=== PATIENT | female | born 1990 | race American Indian/Alaskan Native ===

== ENCOUNTER 2017-02-24 14:50 | Emergency (ER) | payer SELFPAY ==
[2017-02-24 15:33] LABS: Basophils % (Auto) 0.5 % (0.0-1.8); Hematocrit 39.1 % (30.3-42.9); Hemoglobin 12.2 gm/dl (10.1-14.3); Mean Corpuscular HGB Conc 31 % (30-34); Platelet Count 419 K/mm3 (140-440); Red Blood Count 5.77 M/mm3 (3.65-5.03); Red Cell Distribution Width 19.1 % (13.2-15.2); White Blood Count 11.9 K/mm3 (4.5-11.0)
[2017-02-24 15:35] LABS: Mean Corpuscular Hemoglobin 21 pg (28-32); Mean Corpuscular Volume 68 fl (79-97)
[2017-02-24 16:10] LABS: Anion Gap 18 mmol/L; BUN/Creatinine Ratio 16; Blood Urea Nitrogen 11 mg/dL (7-17); Calcium 8.6 mg/dL (8.4-10.2); Carbon Dioxide 26 mmol/L (22-30); Chloride 98.7 mmol/L (98-107); Glucose 100 mg/dL (65-100); Potassium 4.4 mmol/L (3.6-5.0); Sodium 138 mmol/L (137-145)
--- NOTE | 2017-02-25 00:57 | Emergency Department Report ---
ED Chest Pain HPI - General Chief Complaint: Dizziness Stated Complaint: SYNCOPE Time Seen by Provider: 02/25/17 00:29 Source: patient Mode of arrival: Wheelchair Limitations: No Limitations - History of Present Illness Initial Comments: Patient is 26 years old female morbidly obese, she presented today for evaluation of chest pain, syncope and shortness of breath. Patient stated that her symptoms started after she gave plasma today. She denied any fever or cough. Patient also stated that she had one syncopal episode here in the ER. she also mentioned that when she was going to [facility] she starts having shortness of breath too. MD Complaint: chest pain -: Sudden Onset: during rest Severity scale (0 -10): 7 Quality: sharp - Related Data Home Medications Medication Instructions Recorded Confirmed Last Taken No Known Home Medications [No 07/02/15 07/02/15 Unknown Reported Home Medications] Allergies Allergy/AdvReac Type Severity Reaction Status Date / Time No Known Allergies Allergy Unverified 07/02/15 11:44 Heart Score - HEART Score History: Moderately suspicious EKG: Normal Age: < 45 Risk factors: 1-2 risk factors Troponin: < normal limit HEART Score: 2 - Critical Actions Critical Actions: 0-3 pts:0.9-1.7%risk of adverse cardiac event.Candidate for discharge ED Review of Systems ROS: Stated complaint: SYNCOPE Other details as noted in HPI Comment: All other systems reviewed and negative Constitutional: denies: chills, fever Respiratory: shortness of breath, SOB with exertion. denies: cough Cardiovascular: chest pain. denies: palpitations Gastrointestinal: denies: abdominal pain, nausea, vomiting, diarrhea, constipation, hematemesis, melena, hematochezia Neurological: denies: headache, weakness, numbness, paresthesias ED Past Medical Hx - Past Medical History Previous Medical History?: Yes Hx Hypertension: No Additional medical history: Ovarian CNC - Surgical History Past Surgical History?: Yes Additional Surgical History: rt ovary removed secondary to cnc-2011 - Social History Smoking Status: Current Every Day Smoker Substance Use Type: None - Medications Home Medications: Home Medications Medication Instructions Recorded Confirmed Last Taken Type No Known Home Medications [No 07/02/15 07/02/15 Unknown History Reported Home Medications] ED Physical Exam - General Limitations: No Limitations General appearance: alert, in no apparent distress - Head Head exam: Present: atraumatic, normocephalic - Eye Eye exam: Present: normal appearance - ENT ENT exam: Present: normal exam, normal orophraynx, mucous membranes moist - Neck Neck exam: Present: normal inspection, full ROM. Absent: tenderness, meningismus, lymphadenopathy, thyromegaly - Respiratory Respiratory exam: Present: normal lung sounds bilaterally. Absent: respiratory distress, wheezes, rales, rhonchi, stridor, chest wall tenderness, accessory muscle use, decreased breath sounds, prolonged expiratory - Cardiovascular Cardiovascular Exam: Present: regular rate, normal rhythm, normal heart sounds - GI/Abdominal GI/Abdominal exam: Present: soft, normal bowel sounds. Absent: distended, tenderness, guarding, rebound, rigid, organomegaly, mass, bruit, pulsatile mass , hernia - Extremities Exam Extremities exam: Present: normal inspection, full ROM, normal capillary refill. Absent: pedal edema, calf tenderness - Back Exam Back exam: Present: normal inspection, full ROM. Absent: tenderness, CVA tenderness (R), CVA tenderness (L) - Neurological Exam Neurological exam: Present: alert, oriented X3, CN II-XII intact, normal gait - Skin Skin exam: Present: warm, intact, normal color. Absent: cyanosis ED Course Vital Signs 02/24/17 02/24/17 02/24/17 15:12 22:48 22:57 Temperature 98.4 F Pulse Rate 85 102 H Respiratory 16 22 18 Rate Blood Pressure 135/63 119/83 O2 Sat by Pulse 100 98 99 Oximetry 02/24/17 02/24/17 02/24/17 23:00 23:09 23:33 Temperature Pulse Rate 96 H 115 H Respiratory 19 20 Rate Blood Pressure 132/86 132/86 132/86 O2 Sat by Pulse 100 99 98 Oximetry 02/24/17 02/24/17 02/25/17 23:34 23:45 00:00 Temperature Pulse Rate 97 H 96 H Respiratory 14 23 Rate Blood Pressure 132/86 124/73 127/81 O2 Sat by Pulse 100 99 Oximetry 02/25/17 02/25/17 02/25/17 00:15 01:07 01:15 Temperature Pulse Rate 96 H 94 H 97 H Respiratory 18 16 17 Rate Blood Pressure 132/86 132/86 110/69 O2 Sat by Pulse 100 100 Oximetry 02/25/17 02/25/17 02/25/17 01:30 01:45 02:00 Temperature Pulse Rate 116 H 102 H 99 H Respiratory 24 18 17 Rate Blood Pressure 123/66 127/81 119/73 O2 Sat by Pulse 99 100 100 Oximetry 02/25/17 02:30 Temperature Pulse Rate 101 H Respiratory 20 Rate Blood Pressure 132/73 O2 Sat by Pulse 100 Oximetry ED Medical Decision Making - Lab Data Result diagrams: 02/24/17 15:22 02/24/17 15:22 - EKG Data -: EKG Interpreted by Pa EKG shows normal: sinus rhythm Rate: normal - EKG Data Interpretation: no acute changes - Radiology Data Radiology results: report reviewed Chest x-ray showed no acute finding. Critical care attestation.: If time is entered above; I have spent that time in minutes in the direct care of this critically ill patient, excluding procedure time. ED Disposition Clinical Impression: Shortness of breath, Syncope Disposition: DC-01 TO HOME OR SELFCARE Is pt being admited?: No Condition: Stable Instructions: Syncope (ED), Dyspnea (ED) Referrals: PRIMARY CARE, [Primary Care Provider] - 3-5 Days
[2017-02-25 01:32] LABS: Bilirubin,Urine NEG (Negative); Blood,Urine NEG (Negative); Ketones,Urine NEG (Negative); Leukocyte Esterase,Urine NEG (Negative); Mucus,Urine 2+ /HPF; Nitrite,Urine NEG (Negative); Protein,Urine <15 mg/dL mg/dL (Negative); RBC,Urine < 1.0 /HPF (0.0-6.0); Urobilinogen,Urine < 2.0 mg/dL (<2.0)
--- NOTE | 2017-02-25 01:49 | XRay Report ---
FINAL REPORT PROCEDURE: XR CHEST 1V AP TECHNIQUE: A portable AP chest radiograph was obtained at 02/25/2017 06:09 ([facility]) . CPT 95727 HISTORY: Chest pain. Syncopal episode. COMPARISON: No prior studies are available for comparison. FINDINGS: Heart: Normal. Mediastinum/Vessels: Normal. Lungs/Pleural space: Normal. Bony thorax: No acute osseous abnormality. Life support devices: None. IMPRESSION: No radiographic evidence of acute cardiopulmonary disease.
[2017-02-25 02:35] VITALS: BP 132/73
[2017-02-25] MEDS ORDERED: TYLENOL PO ONE (02:35)
== END 2017-02-25 03:10 | disposition home or self-care (01) ==
LOC: ED 14:50
DX: R06.02 Shortness of breath (principal); R55 Syncope and collapse; R07.9 Chest pain, unspecified; E66.01 Morbid (severe) obesity due to excess calories; F17.200 Nicotine dependence, unspecified, uncomplicated
CPT/HCPCS: 36415; 71010; 80048; 81001; 81025; 83880; 84484; 85025; 85379; 93005; 93010; 99283

== ENCOUNTER 2017-11-17 00:42 | Emergency (ER) | payer OTHER, MEDICAID ==
[2017-11-17 03:06] LABS: Basophils # (Auto) 0.1 K/mm3 (0.0-0.1); Basophils % (Auto) 0.9 % (0.0-1.8); Eosinophils # (Auto) 0.3 K/mm3 (0.0-0.4); Eosinophils % (Auto) 2.6 % (0.0-4.3); Hematocrit 29.4 % (30.3-42.9); Hemoglobin 9.1 gm/dl (10.1-14.3); Lymphocytes # (Auto) 3.2 K/mm3 (1.2-5.4); Lymphocytes % (Auto) 26.8 % (13.4-35.0); Mean Corpuscular HGB Conc 31 % (30-34); Monocytes # (Auto) 0.8 K/mm3 (0.0-0.8); Monocytes % (Auto) 6.9 % (0.0-7.3); Platelet Count 454 K/mm3 (140-440); Red Blood Count 4.43 M/mm3 (3.65-5.03)
[2017-11-17 03:17] LABS: BUN/Creatinine Ratio 14; Blood Urea Nitrogen 7 mg/dL (7-17); Calcium 8.7 mg/dL (8.4-10.2); Hemolysis Index 0
[2017-11-17 03:22] LABS: Mean Corpuscular Hemoglobin 20 pg (28-32); Mean Corpuscular Volume 66 fl (79-97); Red Cell Distribution Width 21.2 % (13.2-15.2)
[2017-11-17 03:56] LABS: Bilirubin,Urine NEG (Negative); Blood,Urine NEG (Negative); Color,Urine Yellow (Yellow); Protein,Urine <15 mg/dL mg/dL (Negative); Urobilinogen,Urine < 2.0 mg/dL (<2.0)
--- NOTE | 2017-11-17 04:07 | Ultrasound Report ---
FINAL REPORT EXAM: US OB TRANSVAGINAL HISTORY: vaginal bleeding COMPARISONS: None. FINDINGS: Transvaginal grayscale, color Doppler and M-mode first-trimester ultrasound There is a single living intrauterine with recorded cardiac activity of 177 beats per minute and crown-rump length of approximately 24 millimeters, which corresponds to estimated gestational age of 9 weeks 0 days and delivery date of 06/22/2018. No perigestational hemorrhage. Normal appearing 5 millimeter yolk sac. No free fluid identified within the pelvis. The cervix appears closed and measures around 3 cm in length. A left ovarian functional probable corpus luteal cyst is noted. The left ovary measures 3.3 x 2.4 x 3 cm and is otherwise sonographically unremarkable. The right ovary is not visualized and reportedly removed. IMPRESSION: Single living intrauterine without evident complication. Estimated gestational age is 9 weeks 0 days corresponding to delivery date of 06/22/2018.
--- NOTE | 2017-11-17 04:09 | Ultrasound Report ---
FINAL REPORT EXAM: US OB < = 14 WEEKS FETUS HISTORY: vaginal bleeding COMPARISONS: None. FINDINGS: Transabdominal grayscale, color Doppler and M-mode first-trimester ultrasound There is a single living intrauterine with recorded cardiac activity of 177 beats per minute and crown-rump length of approximately 24 millimeters, which corresponds to estimated gestational age of 9 weeks 0 days and delivery date of 06/22/2018. No perigestational hemorrhage. Normal appearing 5 millimeter yolk sac. No free fluid identified within the pelvis. The cervix appears closed and measures around 3 cm in length. A left ovarian functional probable corpus luteal cyst is noted. The left ovary measures 3.3 x 2.4 x 3 cm and is better seen on transvaginal ultrasound. The right ovary is not visualized and reportedly removed. IMPRESSION: Single living intrauterine without evident complication. Estimated gestational age is 9 weeks 0 days corresponding to delivery date of 06/22/2018.
[2017-11-17 06:45] VITALS: BP 104/68
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
== END 2017-11-17 08:18 | disposition home or self-care (01) ==
LOC: ED 00:42
DX: O20.0 Threatened abortion (principal); Z87.891 Personal history of nicotine dependence; Z3A.08 8 weeks gestation of pregnancy; V49.9XXA Car occupant (driver) (passenger) injured in unspecified traffic accident, initial encounter; W22.12XA Striking against or struck by front passenger side automobile airbag, initial encounter; Y93.89 Activity, other specified; Y92.89 Other specified places as the place of occurrence of the external cause; Y99.8 Other external cause status
CPT/HCPCS: 36415; 36430; 76801; 76817; 80048; 81001; 84702; 85025; 86850; 86870; 86900; 86901; 99284; J2790

== ENCOUNTER 2018-06-01 12:12 | Outpatient (CLI) | payer MEDICAID ==
[2018-06-01] MEDS ORDERED: LACTATED RINGERS 500 ML IV ONE (12:39)
[2018-06-01 13:22] LABS: Bacteria,Urine 1+ /HPF (Negative); Bilirubin,Urine NEG (Negative); Blood,Urine NEG (Negative); Mucus,Urine FEW /HPF; Urobilinogen,Urine < 2.0 mg/dL (<2.0)
[2018-06-01 13:23] LABS: Color,Urine Yellow (Yellow)
[2018-06-01 14:38] LABS: Hematocrit 35.1 % (30.3-42.9); Hemoglobin 11.4 gm/dl (10.1-14.3); Mean Corpuscular HGB Conc 33 % (30-34); Mean Corpuscular Volume 79 fl (79-97); Platelet Count 341 K/mm3 (140-440); Red Blood Count 4.47 M/mm3 (3.65-5.03); Red Cell Distribution Width 17.9 % (13.2-15.2)
[2018-06-01 14:55] LABS: Alanine Aminotransferase 19 units/L (7-56)
[2018-06-01 15:24] VITALS: BP 138/66
[2018-06-01 15:24] LABS: Uric Acid 4.2 mg/dL (3.5-7.6)
== END 2018-06-01 15:44 | disposition home or self-care (01) ==
LOC: TRG 12:12
PROVIDERS: ATTEND Obstetrics & Gynecology
DX: O47.03 False labor before 37 completed weeks of gestation, third trimester (principal); Z3A.36 36 weeks gestation of pregnancy
CPT/HCPCS: 36415; 81001; 82565; 83615; 84450; 84460; 84550; 85027

== ENCOUNTER 2018-06-15 11:52 | Inpatient (IN) | payer MEDICAID ==
[2018-06-15 13:10] LABS: Hemoglobin 11.9 gm/dl (10.1-14.3); Mean Corpuscular HGB Conc 33 % (30-34); Mean Corpuscular Volume 77 fl (79-97); Platelet Count 405 K/mm3 (140-440); Red Blood Count 4.66 M/mm3 (3.65-5.03); Red Cell Distribution Width 17.9 % (13.2-15.2)
[2018-06-15 13:20] LABS: Uric Acid 4.3 mg/dL (3.5-7.6)
[2018-06-15 13:22] LABS: Bilirubin,Urine NEG (Negative); Blood,Urine NEG (Negative); Color,Urine Yellow (Yellow); Mucus,Urine 1+ /HPF
[2018-06-15 13:55] LABS: Alanine Aminotransferase 18 units/L (7-56); Albumin 3.1 g/dL (3.9-5); BUN/Creatinine Ratio 15; Blood Urea Nitrogen 6 mg/dL (7-17); Calcium 8.9 mg/dL (8.4-10.2); Hemolysis Index 5
[2018-06-15] MEDS ORDERED: BRETHINE SUB-Q PRN (16:23)
[2018-06-15] MEDS ORDERED: CERVIDIL VG ONE (16:23)
[2018-06-15] MEDS ORDERED: XYLOCAINE 2% INFILTRATI ONE (16:23)
[2018-06-15] MEDS ORDERED: BRETHINE IVP PRN (16:23)
[2018-06-15] MEDS ORDERED: MINERAL OIL PO PRN (16:23)
[2018-06-15] MEDS ORDERED: PITOCin/NS 30 UNIT/500ML 30 UNITS/500 ML BAG IV SCH (17:00)
[2018-06-15] MEDS ORDERED: PITOCin/NS 20 UNIT/1000ML DRIP 20 UNITS/1,000 ML BAG IV SCH (17:00)
--- NOTE | 2018-06-15 21:18 | History and Physical Report ---
History of Present Illness Date of examination: 06/15/18 Date of admission: 06/15/18 16:28 Chief complaint: Sent from office for elevated BPs History of present illness: Menstrual History Regularity: regular Menses every: monthly days Duration: 5 LMP: 09/18/2017 LMP reliability: definite LMP character: heddler test type: urine test Date: 12/03/2017 BC at conception: none Planned ? 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 Infection History Hx of STD: none Partner hx. of genital herpes: no Rash, Viral, or Febrile illness since last LMP? no Varicella/Chicken Pox Status: Immunized Genetic History Congenital Heart Defect: Mom: no Dad: no Phyllis Disease: Mom: no Dad: no Thalassemia Mom: no Dad: no Neural Tube Defect Mom: no Dad: no Down's Syndrome Mom: no Dad: no Trell-Sachs Mom: no Dad: no Sickle Cell Disease/Trait Mom: no Dad: no Hemophilia Mom: no Dad: no Muscular Dystrophy Mom: no Dad: no Cystic Fibrosis Mom: no Dad: no Deandre Chorea Mom: no Dad: no Mental Retardation Mom: no Dad: no Fragile X Mom: no Dad: no Other Genetic/Chromosomal Disorder Mom: no Dad: no Child w/other defect Mom: no Dad: no Enviromental Exposures Xray Exposure: no Medication, drug, or alcohol use since LMP: no Chemical/Other Exposure: no Exposure to Cat Liter: no Hx of Parvovirus (Fifth Disease): no Active Medications (reviewed today): PROMETHAZINE HCL 25 MG ORAL TABLET (PROMETHAZINE HCL) 1 tab po q6hrs prn STOOL SOFTNER () PNV () DIFLUCAN () Current Allergies (reviewed today): * LATEX (Critical) * SEASONAL (Critical) Past History Past Medical History: other (see HPI) Past Surgical History: other (see HPI) 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 11/17/17 Unknown Rx [Diclegis Dr 10-10 mg Tablet] Vit Calc,Iron,Folic 1 each PO QDAY #30 tablet 11/17/17 Unknown Rx [ Vitamins] Active Meds: Active Medications Ephedrine Sulfate (Ephedrine Sulfate) 10 mg IV Q2M PRN PRN Reason: Hypotension Lactated Ringer's (Lactated Ringers) 1,000 mls @ 125 mls/hr IV DIRECT CIELO Oxytocin/Sodium Chloride (Pitocin/Ns 20 Unit/1000ml Drip) 20 units in 1,000 mls @ 125 mls/hr IV DIRECT CIELO Oxytocin/Sodium Chloride (Pitocin/Ns 30 Unit/500ml) 30 units in 500 mls @ 1 mls/hr IV TITR CIELO; Protocol Mineral Oil (Mineral Oil) 30 ml PO QHS PRN PRN Reason: Constipation Terbutaline Sulfate (Brethine) 0.25 mg SUB-Q ONCE PRN PRN Reason: Hyperstimulation/Hypertonicity Terbutaline Sulfate (Brethine) 0.25 mg IVP ONCE PRN PRN Reason: Hyperstimulation/Hypertonicity Review of Systems All systems: negative (patient reports occasional, not painful contractions. Denies LOF, VB. +FM) - Vital Signs Vital signs: Vital Signs Temp Pulse Resp BP 97.9 F 115 H 18 117/78 06/15/18 12:38 06/15/18 12:38 06/15/18 12:38 06/15/18 12:38 Temp Pulse Resp BP Pulse Ox 97.2 F L 107 H 18 141/71 06/15/18 20:32 06/15/18 20:51 06/15/18 20:32 06/15/18 20:51 - Physical Exam Breasts: Positive: normal Cardiovascular: Regular rate, Normal S1, Normal S2 Lungs: Positive: Clear to auscultation Abdomen: Positive: normal appearance, soft, normal bowel sounds. Negative: distention, tenderness Genitourinary (Female): Positive: normal external genitalia, normal perenium Vulva: both: normal Vagina: Positive: normal moisture. Negative: discharge Cervix: Negative: lesion, discharge Uterus: Positive: other (morbid obesity) Adnexa: both: normal Anus/Rectum: Positive: normal perianal skin, heme negative. Negative: rectal mass, hemorrhoids Extremities: Positive: normal Deep Tendon Reflex Grade: Normal +2 - Obstetrical FHR: auscultation normal, category 1 Uterine Contraction Monitor Mode: External Cervical Dilatation: 0 Cervical Effacement Percentage: 40 station: OOP Uterine Contraction Pattern: Absent Uterine Tone Measurement Phase: Resting (soft resting tone) Results Result Diagrams: 06/15/18 12:50 06/15/18 12:50 Abnormal lab results 06/15/18 06/15/18 06/15/18 Range/Units 12:50 12:50 12:50 MCV 77 L (79-97) fl MCH 26 L (28-32) pg RDW 17.9 H (13.2-15.2) % Sodium 135 L (137-145) mmol/L BUN 6 L (7-17) mg/dL Creatinine 0.4 L 0.4 L (0.7-1.2) mg/dL Lactate Dehydrogenase 206 H (91-180) units/L Albumin 3.1 L (3.9-5) g/dL All other labs normal. Assessment and Plan 27 y.o. IUP at 38w4d sent to [facility] for PIH workup d/t elevated BPs in office. PI labs WNL. Patient continues to have elevated BPs in triage. PIH WNL, patient denies any c/o. Dr. Ovalle notified of assessment and lab results. Will proceed with plan for IOL d/t BPs. Routine IOL with cervidil orders placed. DWP POC. Per Dr. Ovalle, patient may eat dinner. Will continue cervidil til 12 hrs post placement and reassess in AM. Patient agrees to POC. Will continue to monitor. Anticipate .
[2018-06-15] MEDS ORDERED: AMBIEN PO PRN (23:56)
[2018-06-16] MEDS ORDERED: PITOCin/NS 30 UNIT/500ML 30 UNITS/500 ML BAG IV SCH (08:30)
--- NOTE | 2018-06-16 08:45 | Progress Note ---
Assessment and Plan cervidil removed by RN this morning, no change in SVE. Plan for shower and regular breakfast this morning. Plan for pitocin induction today.will reassess PRN. Pt w/o complaints this morning. discussed expectations of serial IOL and plan for today. All questions addressed. reviewed lab work and hx with Dr. Ruff - no dx of pre-e at this time. - Patient Problems (1) Chronic hypertension with exacerbation during in third trimester Current Visit: Yes Status: Acute (2) Rh negative, maternal Current Visit: Yes Status: Acute Qualifiers: Trimester: third trimester Qualified Code(s): O26.893 - Other specified related conditions, third trimester; Z67.91 - Unspecified blood type, Rh negative (3) BMI 60.0-69.9, adult Current Visit: Yes Status: Acute (4) 39 weeks gestation of Current Visit: Yes Status: Acute Subjective - Subjective Date of service: 06/16/18 Principal diagnosis: IUP @ 39+1 weeks, CHTN, BMI 63 Patient reports: no new complaints Objective - Vital Signs Vital Signs: Vital Signs - 12hr 06/15/18 06/15/18 06/15/18 20:51 21:52 22:22 Pulse Rate 107 H 105 H 105 H Blood Pressure 141/71 138/81 142/69 06/15/18 06/15/18 06/16/18 22:51 23:51 00:21 Pulse Rate 107 H 110 H 106 H Blood Pressure 139/78 142/80 158/77 06/16/18 06/16/18 06/16/18 00:52 05:17 07:20 Pulse Rate 102 H 107 H 96 H Blood Pressure 145/71 151/91 118/78 - Exam Breasts: normal Cardiovascular: Regular rate Lungs: Clear to auscultation, Normal air movement Abdomen: Present: normal appearance, soft Vulva: both: normal Uterus: Present: normal FHR: auscultation normal, category 1 Uterine Contraction Monitor Mode: External Uterine Contraction Pattern: Irregular Uterine Tone Measurement Phase: Contraction Uterine Contraction Intensity: Mild Extremities: normal Deep Tendon Reflex Grade: Normal +2 - Labs Labs: Abnormal Labs 06/15/18 06/15/18 06/15/18 12:50 12:50 12:50 MCV 77 L MCH 26 L RDW 17.9 H Sodium 135 L BUN 6 L Creatinine 0.4 L 0.4 L Lactate Dehydrogenase 206 H Albumin 3.1 L Laboratory Results - last 24 hr 06/15/18 06/15/18 06/15/18 12:50 12:50 12:50 WBC 6.8 RBC 4.66 Hgb 11.9 Hct 36.0 MCV 77 L MCH 26 L MCHC 33 RDW 17.9 H Plt Count 405 Sodium 135 L Potassium 3.7 Chloride 100.7 Carbon Dioxide 22 Anion Gap 16 BUN 6 L Creatinine 0.4 L 0.4 L Estimated GFR > 60 > 60 BUN/Creatinine Ratio 15 Glucose 79 Uric Acid 4.3 Calcium 8.9 Total Bilirubin < 0.20 AST 31 32 ALT 18 Alkaline Phosphatase 98 Lactate Dehydrogenase 206 H Total Protein 6.8 Albumin 3.1 L Albumin/Globulin Ratio 0.8 Urine Color Urine Turbidity Urine pH Ur Specific Russell Urine Protein Urine Glucose (UA) Urine Ketones Urine Blood Urine Nitrite Urine Bilirubin Urine Urobilinogen Ur Leukocyte Esterase Urine WBC (Auto) Urine RBC (Auto) U Epithel Cells (Auto) Urine Mucus Blood Type Antibody Screen 06/15/18 06/15/18 13:09 18:17 WBC RBC Hgb Hct MCV MCH MCHC RDW Plt Count Sodium Potassium Chloride Carbon Dioxide Anion Gap BUN Creatinine Estimated GFR BUN/Creatinine Ratio Glucose Uric Acid Calcium Total Bilirubin AST ALT Alkaline Phosphatase Lactate Dehydrogenase Total Protein Albumin Albumin/Globulin Ratio Urine Color Yellow Urine Turbidity Clear Urine pH 6.0 Ur Specific Russell 1.028 Urine Protein 100 mg/dl Urine Glucose (UA) Neg Urine Ketones Neg Urine Blood Neg Urine Nitrite Neg Urine Bilirubin Neg Urine Urobilinogen 2.0 Ur Leukocyte Esterase Tr Urine WBC (Auto) 2.0 Urine RBC (Auto) 1.0 U Epithel Cells (Auto) 2.0 Urine Mucus 1+ Blood Type B NEGATIVE Antibody Screen Negative
[2018-06-16] MEDS: LACTATED RINGERS 1,000 ML IV SCH (09:45)
--- NOTE | 2018-06-16 11:46 | Ultrasound Report ---
ULTRASOUND OB LIMITED History: Presentation Technique: Transabdominal ultrasound with Doppler interrogation. Gestation: Single Position: Cephalic Heart Rate: 143 BPM
--- NOTE | 2018-06-16 13:38 | Event Note ---
Date: 06/16/18 Pt with some bps in sever range yesterday on admission. She appears to have superimposed Pre E on the CHTN. Will con't wit serial IOL and plan to start magnesium when in active labor or if there is return of BP in the severe range ie >160/105.
--- NOTE | 2018-06-16 15:16 | Progress Note ---
Assessment and Plan patient c/o wanting efw removed. She requested "internal monitors." SVE with + change, AROM - clear fluid. ISE and IUPC placed without difficulty - both tracing well. IVF open for bolus, pt desires epidural placement. - Patient Problems (1) Chronic hypertension with exacerbation during in third trimester Current Visit: Yes Status: Acute (2) Rh negative, maternal Current Visit: Yes Status: Acute Qualifiers: Trimester: third trimester Qualified Code(s): O26.893 - Other specified related conditions, third trimester; Z67.91 - Unspecified blood type, Rh negative (3) BMI 60.0-69.9, adult Current Visit: Yes Status: Acute (4) 39 weeks gestation of Current Visit: Yes Status: Acute Subjective - Subjective Date of service: 06/16/18 Principal diagnosis: IUP @ 39+1 weeks, CHTN, BMI 63 Patient reports: contractions Objective - Vital Signs Vital Signs: Vital Signs - 12hr 06/16/18 06/16/18 06/16/18 05:17 07:20 08:12 Temperature 98.6 F Pulse Rate 107 H 96 H Blood Pressure 151/91 118/78 06/16/18 06/16/18 06/16/18 10:00 11:56 14:32 Temperature Pulse Rate 101 H 98 H 102 H Blood Pressure 135/87 141/82 140/87 06/16/18 14:57 Temperature Pulse Rate 98 H Blood Pressure 146/79 - Exam Breasts: normal Cardiovascular: Regular rate Lungs: Clear to auscultation, Normal air movement Abdomen: Present: normal appearance, soft Vulva: both: normal Uterus: Present: normal FHR: auscultation normal, category 1 Uterine Contraction Monitor Mode: Internal Cervical Dilatation: 3 Cervical Effacement Percentage: 80 station: -2 Uterine Contraction Frequency (min): 2-3 Uterine Contraction Duration: 60 Uterine Contraction Pattern: Regular Uterine Tone Measurement Phase: Contraction Uterine Contraction Intensity: Strong/Firm Extremities: normal Deep Tendon Reflex Grade: Normal +2 - Labs Labs: Abnormal Labs 06/15/18 06/15/18 06/15/18 12:50 12:50 12:50 MCV 77 L MCH 26 L RDW 17.9 H Sodium 135 L BUN 6 L Creatinine 0.4 L 0.4 L Lactate Dehydrogenase 206 H Albumin 3.1 L Laboratory Results - last 24 hr 06/15/18 06/15/18 18:17 18:17 RPR Nonreactive Blood Type B NEGATIVE Antibody Screen Negative
[2018-06-16] MEDS ORDERED: STADOL IV PRN (15:17)
[2018-06-16] MEDS ORDERED: NARCAN 2 MG/2 ML IV PRN (16:41)
--- NOTE | 2018-06-16 16:43 | Anesthesia Consultation ---
Anesthesia Consult and Med Hx - Airway Anesthetic Teeth Evaluation: Good ROM Head & Neck: Adequate Mental/Hyoid Distance: Adequate Mallampati Class: Class II Intubation Access Assessment: Probably Good - Pulmonary Exam CTA: Yes - Pre-Operative Health Status ASA Pre-Surgery Classification: ASA2 Proposed Anesthetic Plan: Epidural - Pulmonary Hx Smoking: No Hx Asthma: No Hx Respiratory Symptoms: No SOB: No COPD: No Home Oxygen Therapy: No Hx Pneumonia: No Hx Sleep Apnea: No - Cardiovascular System Hx Hypertension: No - Central Nervous System Hx Seizures: No Hx Psychiatric Problems: No - Endocrine Hx Renal Disease: No Hx End Stage Renal Disease: No Hx Hypothyroidism: No Hx Hyperthyroidism: No - Hematic Hx Anemia: No Hx Sickle Cell Disease: No - Other Systems Hx Alcohol Use: No
--- NOTE | 2018-06-16 16:44 | Anesthesia Day of Surgery ---
Anesthesia Day of Surgery - Day of Surgery Patient Examined: Yes Patient H&P Reviewed: Yes Patient is NPO: Yes Beta Blockers: No Cardiac Clearance: No Pulmonary Clearance: No Kike's Test: N/A
[2018-06-16] MEDS ORDERED: MARCAINE 0.25% INFILTRATI ONE (16:47)
[2018-06-16] MEDS ORDERED: fentaNYL-BUPIV 2 MCG/ML-0.125% 200 MCG/100 ML BAG EPIDURAL SCH (18:00)
--- NOTE | 2018-06-16 19:28 | Progress Note ---
Assessment and Plan head coming down asynclitic, pt's size makes changing position in bed difficult. Unable to move patient to RLP or LLP. Pit on 14mU. IUPC and ISE continue to function well. Pt is comfortable with epidural. b/p's normotensive at this time. Will update Dr. Ruff. continue current plan of care. - Patient Problems (1) Chronic hypertension with exacerbation during in third trimester Current Visit: Yes Status: Acute (2) Rh negative, maternal Current Visit: Yes Status: Acute Qualifiers: Trimester: third trimester Qualified Code(s): O26.893 - Other specified related conditions, third trimester; Z67.91 - Unspecified blood type, Rh negative (3) BMI 60.0-69.9, adult Current Visit: Yes Status: Acute (4) 39 weeks gestation of Current Visit: Yes Status: Acute Subjective - Subjective Date of service: 06/16/18 Principal diagnosis: IUP @ 39+1 weeks, CHTN, BMI 63 Patient reports: no new complaints (comfortable with epidural) Objective - Vital Signs Vital Signs: Vital Signs - 12hr 06/16/18 06/16/18 06/16/18 08:12 10:00 11:56 Temperature 98.6 F Pulse Rate 101 H 98 H Blood Pressure 135/87 141/82 O2 Sat by Pulse Oximetry 06/16/18 06/16/18 06/16/18 14:32 14:57 15:56 Temperature Pulse Rate 102 H 98 H 97 H Blood Pressure 140/87 146/79 139/85 O2 Sat by Pulse Oximetry 06/16/18 06/16/18 06/16/18 16:57 17:03 17:08 Temperature Pulse Rate 118 H 114 H 110 H Blood Pressure 140/90 O2 Sat by Pulse 100 100 Oximetry 06/16/18 06/16/18 06/16/18 17:13 17:18 17:23 Temperature Pulse Rate 109 H 114 H 122 H Blood Pressure O2 Sat by Pulse 100 100 100 Oximetry 06/16/18 06/16/18 06/16/18 17:28 17:33 17:38 Temperature Pulse Rate 115 H 110 H 95 H Blood Pressure O2 Sat by Pulse 100 100 100 Oximetry 06/16/18 06/16/18 06/16/18 17:43 17:48 17:53 Temperature Pulse Rate 89 97 H 97 H Blood Pressure O2 Sat by Pulse 100 99 99 Oximetry 06/16/18 06/16/18 06/16/18 17:56 17:58 18:03 Temperature Pulse Rate 91 H 96 H 89 Blood Pressure 117/52 O2 Sat by Pulse 99 100 Oximetry 06/16/18 06/16/18 18:57 19:13 Temperature Pulse Rate 100 H 100 H Blood Pressure 118/58 110/60 O2 Sat by Pulse Oximetry - Exam Breasts: normal Cardiovascular: Regular rate Lungs: Clear to auscultation Abdomen: Present: normal appearance, soft Vulva: both: normal Uterus: Present: normal FHR: category 2 Uterine Contraction Monitor Mode: Internal Cervical Dilatation: 4 (head acynclitic ) Cervical Effacement Percentage: 80 station: -1 Uterine Contraction Frequency (min): 2 Uterine Contraction Duration: 60 Uterine Contraction Pattern: Regular Uterine Tone Measurement Phase: Contraction Uterine Contraction Intensity: Moderate Extremities: normal - Labs Labs: Abnormal Labs 06/15/18 06/15/18 06/15/18 12:50 12:50 12:50 MCV 77 L MCH 26 L RDW 17.9 H Sodium 135 L BUN 6 L Creatinine 0.4 L 0.4 L Lactate Dehydrogenase 206 H Albumin 3.1 L Laboratory Results - last 24 hr 06/15/18 18:17 RPR Nonreactive
--- NOTE | 2018-06-16 22:30 | Progress Note ---
Assessment and Plan SVE 9,100,+1 Pt sitting up Will reexamine in 30 min made aware Subjective - Subjective Date of service: 06/16/18 (pt c/o need to have BM) Principal diagnosis: IUP @ 39+1 weeks, CHTN, BMI 63 Patient reports: movement normal, no new complaints (comfortable with epidural) Objective - Vital Signs Vital Signs: Vital Signs - 12hr 06/16/18 06/16/18 06/16/18 11:56 14:32 14:57 Pulse Rate 98 H 102 H 98 H Blood Pressure 141/82 140/87 146/79 O2 Sat by Pulse Oximetry 06/16/18 06/16/18 06/16/18 15:56 16:57 17:03 Pulse Rate 97 H 118 H 114 H Blood Pressure 139/85 140/90 O2 Sat by Pulse 100 Oximetry 06/16/18 06/16/18 06/16/18 17:08 17:13 17:18 Pulse Rate 110 H 109 H 114 H Blood Pressure O2 Sat by Pulse 100 100 100 Oximetry 06/16/18 06/16/18 06/16/18 17:23 17:28 17:33 Pulse Rate 122 H 115 H 110 H Blood Pressure O2 Sat by Pulse 100 100 100 Oximetry 06/16/18 06/16/18 06/16/18 17:38 17:43 17:48 Pulse Rate 95 H 89 97 H Blood Pressure O2 Sat by Pulse 100 100 99 Oximetry 06/16/18 06/16/18 06/16/18 17:53 17:56 17:58 Pulse Rate 97 H 91 H 96 H Blood Pressure 117/52 O2 Sat by Pulse 99 99 Oximetry 06/16/18 06/16/18 06/16/18 18:03 18:57 19:13 Pulse Rate 89 100 H 100 H Blood Pressure 118/58 110/60 O2 Sat by Pulse 100 Oximetry 06/16/18 06/16/18 06/16/18 20:10 20:57 21:56 Pulse Rate 100 H 112 H 112 H Blood Pressure 133/91 141/91 134/70 O2 Sat by Pulse Oximetry - Exam Breasts: deferred Cardiovascular: Regular rate Lungs: Normal air movement Abdomen: Present: normal appearance, soft Uterus: Present: normal FHR: category 1 Uterine Contraction Monitor Mode: External Uterine Contraction Pattern: Regular Uterine Contraction Intensity: Strong/Firm Extremities: edema Deep Tendon Reflex Grade: Normal +2 - Labs Labs: Abnormal Labs 06/15/18 06/15/18 06/15/18 12:50 12:50 12:50 MCV 77 L MCH 26 L RDW 17.9 H Sodium 135 L BUN 6 L Creatinine 0.4 L 0.4 L Lactate Dehydrogenase 206 H Albumin 3.1 L Laboratory Results - last 24 hr 06/15/18 18:17 RPR Nonreactive
[2018-06-16] MEDS ORDERED: ZOFRAN IV ONE (22:34)
[2018-06-16] MEDS ORDERED: CYTOTEC ONE (23:19)
[2018-06-16] MEDS ORDERED: MAGNESIUM SULFATE 4GM/100ML 4 GM/100 ML BAG IV ONE (23:36)
[2018-06-16] MEDS ORDERED: CYTOTEC PR ONE (23:37)
[2018-06-16] MEDS ORDERED: TUCKS PAD TP PRN (23:40)
[2018-06-16] MEDS ORDERED: MILK OF MAGNESIA PO PRN (23:40)
[2018-06-16] MEDS ORDERED: DULCOLAX PR PRN (23:40)
[2018-06-16] MEDS ORDERED: ZOFRAN IV PRN (23:40)
[2018-06-16] MEDS ORDERED: PHENERGAN PR PRN (23:40)
[2018-06-16] MEDS ORDERED: PERCOCET 5/325 PO PRN (23:40)
[2018-06-16] MEDS ORDERED: PHENERGAN PO PRN (23:40)
[2018-06-16] MEDS ORDERED: BENADRYL PO PRN (23:40)
[2018-06-16] MEDS ORDERED: SODIUM CHLORIDE FLUSH SYRINGE 10 ML IV NR (23:45)
[2018-06-16] MEDS ORDERED: MAGNESIUM SULFATE 40GM/1000ML 40 GM/1,000 ML BAG IV SCH (23:45)
--- NOTE | 2018-06-16 23:45 | Procedure Note ---
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 Estimated blood loss: 500cc - Vaginal Delivery presentation: vertex Delivery position: OA Intrapartum events: preeclampsia, other(please specify) (GDM; BMI>60) Delivery induction: cervidil Delivery augmentation: rupture of membranes, pitocin Delivery monitor: internal FHT, internal uterine Route of delivery: Delivery placenta: spontaneous Delivery cord: 3 umbilical vessels Episiotomy: none Delivery laceration: 2nd degree Delivery repair: vicryl Anesthesia: epidural Delivery comments: live born female over intact perineum Baby to mom's abdomen skin to skin Cord blood obtained Placenta and membrane delivered complete and intact 3 vessel cord Pit IVFs 2nd degree laceration Repaired with 2-0 vicryl Bleeding noted Cytotec 800mcg placed WA 8/9, EBL 500, Wgt 6-12 Mom and baby remain LDR stable FF Lochia small Will start MGSO4 d/t Pre-E Barbosa cath remains in place. aware - Infant A at 1 minute: 8 at 5 minutes: 9 Gender: Female (wgt 6-12)
[2018-06-17] MEDS: LACTATED RINGERS 1,000 ML IV SCH ×2 (00:51→13:30)
[2018-06-17] MEDS ORDERED: APRESOLINE IV ONE (04:23)
--- NOTE | 2018-06-17 05:45 | Event Note ---
Date: 06/17/18 (pt continues to have elevated BPs) Apresolin 20mg IV given X 1 dose and started on Labetalol 20mg BID Close monitoring of BPs
[2018-06-17] MEDS: IBUPROFEN PO SCH ×4 (05:47→23:43)
[2018-06-17] MEDS ORDERED: M-M-R II VACCINE SUB-Q ONE (06:00)
[2018-06-17] MEDS ORDERED: BOOSTRIX IM ONE (06:00)
[2018-06-17] MEDS ORDERED: NORMODYNE PO SCH (10:00)
[2018-06-17] MEDS: NORMODYNE PO SCH ×2 (10:38→23:45)
[2018-06-17 14:11] LABS: Hemoglobin 10.9 gm/dl (10.1-14.3)
[2018-06-18] MEDS: IBUPROFEN PO SCH ×2 (05:14→20:05)
[2018-06-18] MEDS ORDERED: BOOSTRIX IM ONE (06:00)
--- NOTE | 2018-06-18 08:50 | Progress Note ---
Assessment and Plan PPD 1. Fundus firm, ML, vaginal bleeding is minimal. Patient reports feeling well, no complaints, reports pain is well controlled with medications. VSSAF. Continue pathway. 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 yes EDC Calculations LMP: 06/25/2018 EDC Confirmation: 06/25/2018 Gestational Age: 10 6/7 weeks Past History : 1 Past Medical History: Reviewed history from 08/16/2014 and no changes required: hx of atypical proliferative borderline tumor Ovarian Hypertension BRCA negative Past Surgical History: Reviewed history from 10/04/2009 and no changes required: Salpingo-oophorectomy (06/20/2009)(R)Robotic assisted Past Medical History Surgery (Non-author agent): Salpingo-oophorectomy (06/20/2009)(R)Robotic assisted Abnormal PAP: negative SHAWNA Exposure: negative Infertility: negative Uterine Anomaly: negative Uterine Surgery (not C/S): negative Other Gynecologic Problems: negative Social Hx: Patient is single no tobacco since pregnany, no etoh, no drug not working Smoking History: Patient is a former smoker. Infection History Hx of STD: none Partner hx. of genital herpes: no Rash, Viral, or Febrile illness since last LMP? no Varicella/Chicken Pox Status: Immunized Genetic History Congenital Heart Defect: Mom: no Dad: no Phyllis Disease: Mom: no Dad: no Thalassemia Mom: no Dad: no Neural Tube Defect Mom: no Dad: no Down's Syndrome Mom: no Dad: no Trell-Sachs Mom: no Dad: no Sickle Cell Disease/Trait Mom: no Dad: no Hemophilia Mom: no Dad: no Muscular Dystrophy Mom: no Dad: no Cystic Fibrosis Mom: no Dad: no Lucas Chorea Mom: no Dad: no Mental Retardation Mom: no Dad: no Fragile X Mom: no Dad: no Other Genetic/Chromosomal Disorder Mom: no Dad: no Child w/other defect Mom: no Dad: no Enviromental Exposures Xray Exposure: no Medication, drug, or alcohol use since LMP: no Chemical/Other Exposure: no Exposure to Cat Liter: no Hx of Parvovirus (Fifth Disease): no Active Medications (reviewed today): PROMETHAZINE HCL 25 MG ORAL TABLET (PROMETHAZINE HCL) 1 tab po q6hrs prn STOOL SOFTNER () PNV () DIFLUCAN () Current Allergies (reviewed today): * LATEX (Critical) * SEASONAL (Critical) Patient reports: appetite normal, voiding normally, pain well controlled, ambulating normally Objective - Vital Signs Latest vital signs: Vital Signs Temp Pulse Resp BP Pulse Ox 06/18/18 05:29 98.3 F 89 20 151/89 100 06/18/18 00:29 98.2 F 96 H 20 148/89 100 06/17/18 23:45 80 06/17/18 23:43 20 06/17/18 22:35 95 H 137/64 06/17/18 22:18 103 H 141/90 06/17/18 20:35 96 H 129/71 06/17/18 20:00 106 H 124/65 06/17/18 18:48 108 H 135/81 06/17/18 17:14 115 H 0 L 06/17/18 17:10 111 H 99 06/17/18 17:05 111 H 98 06/17/18 17:00 109 H 98 06/17/18 16:55 107 H 97 06/17/18 16:50 108 H 98 06/17/18 16:45 118 H 99 06/17/18 16:40 111 H 99 06/17/18 16:35 105 H 126/83 99 06/17/18 12:33 106 H 130/70 06/17/18 11:40 107 H 98 06/17/18 11:35 104 H 98 06/17/18 11:33 100 H 133/62 06/17/18 11:25 102 H 98 06/17/18 11:20 104 H 98 06/17/18 11:15 107 H 98 06/17/18 11:10 103 H 97 06/17/18 11:05 105 H 97 06/17/18 11:00 110 H 97 06/17/18 10:55 108 H 98 06/17/18 10:50 107 H 97 06/17/18 10:45 108 H 98 06/17/18 10:40 107 H 98 06/17/18 10:38 111 H 139/62 06/17/18 10:35 110 H 98 06/17/18 10:33 105 H 139/72 95 06/17/18 10:30 108 H 98 06/17/18 10:25 111 H 98 06/17/18 10:19 111 H 99 06/17/18 10:14 107 H 97 06/17/18 10:09 116 H 98 06/17/18 10:04 112 H 98 06/17/18 09:59 112 H 98 06/17/18 09:54 110 H 98 06/17/18 09:49 114 H 98 06/17/18 09:44 114 H 98 06/17/18 09:39 113 H 98 06/17/18 09:34 116 H 98 06/17/18 09:33 114 H 144/75 06/17/18 09:29 117 H 98 06/17/18 09:24 115 H 98 06/17/18 09:19 119 H 98 06/17/18 09:14 116 H 97 06/17/18 09:09 116 H 99 06/17/18 09:04 117 H 98 06/17/18 08:59 117 H 98 06/17/18 08:54 114 H 98 Intake and Output 06/17/18 06/18/18 06/18/18 23:59 07:59 15:59 Intake Total 600 Output Total 1800 1000 Balance -1200 -1000 Intake: Oral 600 Output: Urine 1800 1000 Indwelling Catheter 1800 100 Void 900 Other: Total, Intake Amount 600 Total, Output Amount 800 100 # Voids Indwelling Catheter 1 Void 1 - Exam Breasts: Present: normal Cardiovascular: Present: Regular rate, Normal S1, Normal S2 Lungs: Present: Clear to auscultation Abdomen: Present: normal appearance, soft, normal bowel sounds Uterus: Present: normal, firm Extremities: Present: normal Incision: Present: normal, dry, intact - Labs Labs: Abnormal lab results 06/17/18 06/17/18 06/17/18 Range/Units 13:31 20:01 22:55 Magnesium 3.80 H 3.90 H 3.30 H (1.7-2.3) mg/dL
[2018-06-18] MEDS: NORMODYNE PO SCH ×3 (10:25→21:48)
[2018-06-18] MEDS: TYLENOL PO PRN (14:35)
[2018-06-18] MEDS: LANSINOH TP PRN ×2 (14:42→20:11)
[2018-06-19] MEDS: IBUPROFEN PO SCH ×2 (08:11)
--- NOTE | 2018-06-19 08:12 | Discharge Summary ---
Providers - Providers Date of Admission: 06/15/18 16:28 Date of discharge: 06/19/18 (desires d/c home) Attending physician: BHAVNA RAYO Primary care physician: FACUNDO SIEGEL Hospitalization Reason for admission: Induction of labor; pre-e Condition: Good Pertinent studies: post delivery H&H 10.9/33.0 Procedures: Hospital course: and course complicated by morbid obesity, CHTN w/ superimposed pre-e Disposition: DC-01 TO HOME OR SELFCARE - Discharge Diagnoses (1) Rh negative, maternal Status: Acute Qualifiers: Trimester: third trimester Qualified Code(s): O26.893 - Other specified related conditions, third trimester; Z67.91 - Unspecified blood type, Rh negative (2) BMI 60.0-69.9, adult Status: Acute (3) Normal spontaneous vaginal delivery Status: Acute (4) Pre-eclampsia superimposed on chronic hypertension Status: Acute Core Measure Documentation - Palliative Care Palliative Care/ Comfort Measures: Not Applicable - Core Measures Any of the following diagnoses?: none Exam - Physical Exam Narrative exam: Pt reports all members of the care team are listening to her concerns and all of her preferences have been addressed. She declines any additional needs at the time of assessment. - Constitutional Vitals: Temp Pulse Resp BP Pulse Ox 98.3 F 96 H 18 108/56 99 06/19/18 01:05 06/19/18 01:05 06/19/18 04:59 06/19/18 01:05 06/18/18 16:59 General appearance: Present: no acute distress, well-nourished - EENT Eyes: Present: PERRL ENT: hearing intact, clear oral mucosa - Neck Neck: Present: supple, normal ROM - Respiratory Respiratory effort: normal Respiratory: bilateral: CTA - Cardiovascular Heart Sounds: Present: S1 & S2. Absent: rub, click - Extremities Extremities: pulses symmetrical, No edema Peripheral Pulses: within normal limits - Abdominal General gastrointestinal: Present: soft, non-tender, non-distended, normal bowel sounds Female genitourinary: Present: normal - Integumentary Integumentary: Present: clear, warm, dry - Musculoskeletal Musculoskeletal: gait normal, strength equal bilaterally - Psychiatric Psychiatric: appropriate mood/affect, intact judgment & insight - Neurologic Neurologic: CNII-XII intact, moves all extremities - Additional findings Additional findings: lochia scant, breast feeding and pumping breast milk Plan Activity: no restrictions Diet: regular Follow up with: FACUNDO SIEGEL MD [Primary Care Provider] - 7 Days (Congratulations! Please call [phone] to schedule an appointment for a blood pressure check in 1 week. Call for any quesitons or concerns.) Prescriptions: Ibuprofen [Motrin 800 MG tab] 800 mg PO Q8HR PRN #30 tablet PRN Reason: Pain Labetalol [Normodyne TAB] 200 mg PO BID #60 tablet
[2018-06-19] MEDS: TYLENOL PO PRN (08:14)
[2018-06-19] MEDS ORDERED: IBUPROFEN PO PRN (08:16)
[2018-06-19] MEDS: NORMODYNE PO SCH (10:53)
[2018-06-19 15:46] VITALS: BP 127/76
== END 2018-06-19 15:30 | disposition home or self-care (01) | DRG 774 ==
LOC: TRG 11:52 → LD 16:28 → OB 06-18 00:37
PROVIDERS: ADMIT Obstetrics & Gynecology; ATTEND Obstetrics & Gynecology
PROC: 10E0XZZ Delivery of Products of Conception, External Approach (ICD-10-PCS; principal; 2018-06-16)
PROC: 0KQM0ZZ Repair Perineum Muscle, Open Approach (ICD-10-PCS; 2018-06-16)
PROC: 3E0P7VZ Introduction of Hormone into Female Reproductive, Via Natural or Artificial Opening (ICD-10-PCS; 2018-06-16)
PROC: 3E0R3BZ Introduction of Anesthetic Agent into Spinal Canal, Percutaneous Approach (ICD-10-PCS; 2018-06-16)
PROC: 00HU33Z Insertion of Infusion Device into Spinal Canal, Percutaneous Approach (ICD-10-PCS; 2018-06-16)
PROC: 10H07YZ Insertion of Other Device into Products of Conception, Via Natural or Artificial Opening (ICD-10-PCS; 2018-06-16)
PROC: 3E0234Z Introduction of Serum, Toxoid and Vaccine into Muscle, Percutaneous Approach (ICD-10-PCS; 2018-06-18)
PROC: 3E0334Z Introduction of Serum, Toxoid and Vaccine into Peripheral Vein, Percutaneous Approach (ICD-10-PCS; 2018-06-18)
DX: O11.4 Pre-existing hypertension with pre-eclampsia, complicating childbirth (principal); O26.893 Other specified pregnancy related conditions, third trimester; O24.429 Gestational diabetes mellitus in childbirth, unspecified control; O99.214 Obesity complicating childbirth; E66.01 Morbid (severe) obesity due to excess calories; O70.1 Second degree perineal laceration during delivery; Z3A.39 39 weeks gestation of pregnancy; Z67.91 Unspecified blood type, Rh negative; Z37.0 Single live birth; Z68.44 Body mass index [BMI] 60.0-69.9, adult; Z91.040 Latex allergy status; Z79.899 Other long term (current) drug therapy; Z23 Encounter for immunization
CPT/HCPCS: 36415; 59025; 59200; 76815; 80053; 81001; 82565; 83615; 83735; 84450; 84550; 85014; 85018; 85027; 85461; 86592; 86850; 86900; 86901; 88307; 90471; 90715; G0378; A6250; J0360; J0595; J2405; J2590; J2790; J3475; J7120